=== PATIENT | female | born 1940 | race Hispanic/Latino ===

== ENCOUNTER 2019-04-05 15:43 | Emergency (ER) | payer OTHER ==
--- OUTSIDE RECORDS SUMMARY | 2019-04-05 15:46 | XMS REPORT ---
:1940 [facility] Organization [facility] Address [address] [place] [address] Care Team Providers Name Role Phone Unavailable Unavailable Unavailable Problems This patient has no known problems. Allergies, Adverse Reactions, Alerts This patient has no known allergies or adverse reactions. Medications This patient has no known medications.
--- OUTSIDE RECORDS SUMMARY | 2019-04-05 15:46 | XMS REPORT ---
:1940 Author Organization [employer] Care Team Providers Name Role Phone Larios, Na Provider Role Unavailable Allergies No Known Allergies Problems Problem Type Condition Code Onset Dates Condition Status Problem Age-related osteoporosis without M81.0 Active current pathological fracture Problem History of bilateral mastectomy Z98.89 Active Problem History of breast cancer Z85.3 Active Problem Controlled type 2 diabetes mellitus E11.9 Active without complication, without long-term current use of insulin Problem Osteoarthritis of lumbar spine, M47.816 Active unspecified spinal osteoarthritis complication status Problem Diabetes E11.9 Active Problem Obesity E66.9 Active Problem Hyperlipidemia E78.5 Active Problem Unsteady gait R26.81 Active Problem Tinea corporis B35.4 Active Problem Hypothyroidism E03.9 Active Problem GERD (gastroesophageal reflux K21.9 Active disease) Medications Medication Code Code Instructions Start End Date Status Dosage System Date Metformin HCl [facility][NOTE 3] 38200571643 850MG Orally Active 1 tablet three times a with a day meal Results No Known Results Summary Purpose [employer] System Submission
--- OUTSIDE RECORDS SUMMARY | 2019-04-05 15:46 | XMS REPORT ---
:1940 Author Organization [employer] Care Team Providers Name Role Phone Larios, Na Provider Role Unavailable Allergies, Adverse Reactions, Alerts Substance Reaction Event Type statin palpitations Drug Allergy codeine Info Not Available Drug Allergy Problems Problem Type Condition Code Onset Dates Condition Status Problem Age-related osteoporosis without M81.0 Active current pathological fracture Problem History of bilateral mastectomy Z98.89 Active Problem History of breast cancer Z85.3 Active Problem Diabetes E11.9 Active Problem Obesity E66.9 Active Problem Hyperlipidemia E78.5 Active Problem Unsteady gait R26.81 Active Problem Tinea corporis B35.4 Active Problem Hypothyroidism E03.9 Active Problem GERD (gastroesophageal reflux K21.9 Active disease) Assessment Age-related osteoporosis without M81.0 Active current pathological fracture Assessment Kriss rash of groin B37.89 Active Assessment Hypothyroidism E03.9 Active Assessment Controlled type 2 diabetes mellitus E11.9 Active without complication, without long-term current use of insulin Assessment Osteoarthritis of lumbar spine, M47.816 Active unspecified spinal osteoarthritis complication status Problem Controlled type 2 diabetes mellitus E11.9 Active without complication, without long-term current use of insulin Assessment Hyperlipidemia E78.5 Active Problem Osteoarthritis of lumbar spine, M47.816 Active unspecified spinal osteoarthritis complication status Medications Medication Code Code Instructions Start End Status Dosage System Date Date Amoxicillin ND 90486096185 500 MG Orally Inactive 1 tablet every 8 hrs Levothyroxine ND 64126112542 50 MCG Orally Active 1 tablet on Sodium Once a day an empty stomach in the morning Glimepiride ND 80203701130 2 MG Orally Inactive 1 tablet with Once a day breakfast or the first main meal of the day Nystatin [facility] 56869255636 847471 UNIT/GM Active 1 application Externally to affected Twice a day area Alendronate ND 06261751030 70 MG Orally Active 1 tablet Sodium Aspirin [facility] 81498382673 325 MG Orally Inactive 1 tablet Once a day -81 [facility] 64633206834 81 MG Orally Active 1 tablet Once a day Metformin HCl ND 27005117020 850 MG Orally Active 1 tablet with Three times a meals day Results Name Result Date Reference Range Unit Abnormality Flag KAR- XR LUMBAR SPINE (AP/LATERAL) Summary Purpose eClinicalWorks Submission
--- OUTSIDE RECORDS SUMMARY | 2019-04-05 15:46 | XMS REPORT ---
:1940 Author Organization [employer] Care Team Providers Name Role Phone Larios, Na Provider Role Unavailable Allergies, Adverse Reactions, Alerts Substance Reaction Event Type statin palpitations Drug Allergy codeine Info Not Available Drug Allergy Problems Problem Type Condition Code Onset Dates Condition Status Problem Unsteady gait R26.81 Active Problem Hypothyroidism E03.9 Active Problem GERD (gastroesophageal reflux K21.9 Active disease) Problem Tinea corporis B35.4 Active Problem History of bilateral mastectomy Z98.89 Active Problem Poison lewis dermatitis L23.7 Active Problem Diabetes E11.9 Active Problem Obesity E66.9 Active Problem History of breast cancer Z85.3 Active Problem Hyperlipidemia E78.5 Active Assessment Hyperlipidemia E78.5 Active Assessment Hypothyroidism E03.9 Active Assessment Skin tags, multiple acquired L91.8 Active Problem Controlled type 2 diabetes mellitus E11.9 Active without complication, without long-term current use of insulin Assessment Poison lewis dermatitis L23.7 Active Problem Osteoarthritis of lumbar spine, M47.816 Active unspecified spinal osteoarthritis complication status Assessment Controlled type 2 diabetes mellitus E11.9 Active without complication, without long-term current use of insulin Problem Age-related osteoporosis without M81.0 Active current pathological fracture Medications Medication Code Code Instructions Start End Status Dosage System Date Date Levothyroxine [facility] 10250201311 50 MCG Orally Active 1 tablet on Sodium Once a day an empty stomach in the morning Aspirin [facility] 91746541452 325 MG Orally Inactive 1 tablet Once a day Metformin HCl ND 61953730777 850MG Active TAKE ONE TABLET BY MOUTH THREE TIMES DAILY Omeprazole ND 69838555113 20MG Active TAKE ONE CAPSULE BY MOUTH ONCE DAILY Metformin HCl ND 93231298589 850 MG Orally Active 1 tablet with Three times a meals day Glimepiride ND 23483787636 2 MG Orally Inactive 1 tablet with Once a day breakfast or the first main meal of the day Nystatin ND 57584225508 796722 UNIT/GM Active 1 application Externally to affected Twice a day area Levothyroxine ND 84751333781 75MCG Active TAKE ONE Sodium TABLET BY MOUTH ONCE DAILY Alendronate [facility] 41322639250 70 MG Orally Active 1 tablet Sodium Aspir-81 [facility] 72838240358 81 MG Orally Active 1 tablet Once a day Results No Known Results Summary Purpose eClinicalWorks Submission
[2019-04-05] MEDS ORDERED: TETRACAINE HCL 0.5% 4ML OPTH ONE (16:17)
[2019-04-05] MEDS ORDERED: FLUORESCEIN SODIUM 1 MG/WRAP ONE ×2 (16:17→16:18)
--- NOTE | 2019-04-05 16:45 | ER ---
Nurse's Notes [facility] Name: Nadira Costello Age: 79 yrs Sex: Female : 1940 Arrival Date: 04/05/2019 Time: 15:44 Bed 24 Private MD: out of town, doctor Diagnosis: Foreign body sensation left eye Presentation: 04/05 15:48 Presenting complaint: Patient states: "I have an eyelash in my left eye and I can't get aa5 it out and it's irritating my eye". Transition of care: patient was not received from another setting of care. Onset of symptoms was April 05, 2019. Risk Assessment: Do you want to hurt yourself or someone else? Patient reports no desire to harm self or others. Initial Sepsis Screen: Does the patient meet any 2 criteria? No. Patient's initial sepsis screen is negative. Does the patient have a suspected source of infection? No. Patient's initial sepsis screen is negative. Care prior to arrival: None. 15:48 Method Of Arrival: Ambulatory aa5 15:48 Acuity: FLORENTINO 4 aa5 Historical: - Allergies: 15:49 Lisinopril; aa5 15:49 Nitrofurantoin; aa5 15:49 tramadol; aa5 15:49 Vicodin; aa5 - PMHx: 15:49 Arthritis; breast cancer; Diabetes - NIDDM; Hypothyroidism; aa5 - PSHx: 15:49 Mastectomy, Left; Appendectomy; Hysterectomy; aa5 - Immunization history:: Adult Immunizations up to date. - Coronavirus screen:: The patient has NOT traveled to [place], [place], or [place] in the past 14 days. - Social history:: Smoking status: Patient denies any tobacco usage or history of. - Ebola Screening: : No symptoms or risks identified at this time. Screenin:50 Abuse screen: Denies threats or abuse. Denies injuries from another. Nutritional ls4 screening: No deficits noted. Tuberculosis screening: No symptoms or risk factors identified. Fall Risk None identified. Assessment: 15:50 General: Appears in no apparent distress. uncomfortable, Behavior is calm, cooperative. ls4 Pain: Complains of pain in left eye Quality of pain is described as tender. Neuro: No deficits noted. Cardiovascular: No deficits noted. Respiratory: No deficits noted. GI: No deficits noted. : No deficits noted. EENT: Reports FEELS LIKE SOMETHING IS IN HER EYE. PT STATES THAT SHE CAN SEE BUT IT IS IRRITATED. . Derm: No deficits noted. Musculoskeletal: No deficits noted. 16:50 Reassessment: Patient appears in no apparent distress at this time. Patient and/or ls4 family updated on plan of care and expected duration. Pain level reassessed. Patient is alert, oriented x 3, equal unlabored respirations, skin warm/dry/pink. Vital Signs: 15:50 BP 167 / 79; Pulse 67; Resp 16 S; Temp 97.4(TE); Pulse Ox 99% on R/A; Weight 68.04 kg aa5 (R); Height 5 ft. 1 in. (154.94 cm) (R); 16:55 BP 146 / 78; Pulse 64; Resp 14; Temp 97.5(O); Pulse Ox 99% on R/A; Pain 0/10; ls4 15:50 Body Mass Index 28.34 (68.04 kg, 154.94 cm) aa5 ED Course: 15:44 Patient arrived in ED. ag5 15:44 out of town, doctor is Private Physician. ag5 15:49 Triage completed. aa5 15:49 Arm band placed on. aa5 15:50 Patient has correct armband on for positive identification. Bed in low position. Call ls4 light in reach. Side rails up X2. 15:55 [facility] cp 15:55 Sumeet Daugherty MD is Attending Physician. cp 16:02 Christy Leblanc, LULA is Primary Nurse. ls4 16:42 Daljit Ambrocio MD is Referral Physician. cp 16:45 Assist provider with eye exam of left eye. using fluorescein stain, Performed by Dennis 4 Brittany BAUTISTA Patient tolerated well. 16:45 Patient did not have IV access during this emergency room visit. ls4 Administered Medications: 16:20 Drug: Tetracaine Drops 0.5 % 1 drops Route: Ophthalmic; Site: left eye; ls4 Outcome: 16:44 Discharge ordered by . cp 17:02 Discharged to home ambulatory. ls4 17:02 Condition: good 17:02 Discharge instructions given to patient, Instructed on discharge instructions, follow up and referral plans. medication usage, Demonstrated understanding of instructions, follow-up care, medications. 17:03 Patient left the ED. ls4 Signatures: Lisa Gonzalez, LULA RN aa5 Dennis Soto PA PA cp Stewart, Lisa, RN RN ls4 Beatriz Johnson 5
--- NOTE | 2019-04-05 16:45 | EDPHYS ---
Physician Documentation [facility] Name: Nadira Costello Age: 79 yrs Sex: Female : 1940 Arrival Date: 04/05/2019 Time: 15:44 Bed 24 Private MD: out of town, doctor ED Physician Sumeet Daugherty HPI: 04/05 16:05 This 79 yrs old Female presents to ER via Ambulatory with complaints of cp Foreign Body In Eye. 16:05 The patient is experiencing foreign body sensation, to the left eye, caused by possible cp eyelash. Onset: The symptoms/episode began/occurred today. Duration: the symptoms are continuous. Associated signs and symptoms: Pertinent negatives: ear ache, fever, headache, vision changes. Patient wears glasses. Severity of symptoms: in the emergency department the symptoms are unchanged despite home interventions. Historical: - Allergies: 15:49 Lisinopril; aa5 15:49 Nitrofurantoin; aa5 15:49 tramadol; aa5 15:49 Vicodin; aa5 - PMHx: 15:49 Arthritis; breast cancer; Diabetes - NIDDM; Hypothyroidism; aa5 - PSHx: 15:49 Mastectomy, Left; Appendectomy; Hysterectomy; aa5 - Immunization history:: Adult Immunizations up to date. - Coronavirus screen:: The patient has NOT traveled to [place], [place], or [place] in the past 14 days. - Social history:: Smoking status: Patient denies any tobacco usage or history of. - Ebola Screening: : No symptoms or risks identified at this time. ROS: 16:10 Constitutional: Negative for body aches, chills, fever. cp 16:10 Eyes: Positive for foreign body sensation, of the underside of left upper eyelid, Negative for discharge, pain, redness, visual disturbance. 16:10 ENT: Negative for drainage from ear(s), ear pain, sore throat, difficulty swallowing, difficulty handling secretions. 16:10 Respiratory: Negative for cough, shortness of breath, wheezing. 16:10 Abdomen/GI: Negative for abdominal pain, nausea, vomiting, and diarrhea. 16:10 Skin: Negative for cellulitis, rash. 16:10 Neuro: Negative for altered mental status, headache, weakness. 16:10 All other systems are negative. cp Exam: 16:20 Constitutional: The patient appears in no acute distress, alert, awake, comfortable, cp non-toxic, well developed, well nourished. 16:20 Head/Face: Normocephalic, atraumatic. cp 16:20 Eyes: Periorbital structures: appear normal, Pupils: equal, round, and reactive to light and accomodation, Extraocular movements: intact throughout, Conjunctiva: normal, no exudate, no injection, Corneas: abrasion, is not appreciated, on the left, foreign body, is not appreciated, on the left, a fluorescein strip employed to appreciate the findings, Sclera: no appreciated abnormality, Anterior chamber: normal, in left eye, Lids and lashes: appear normal, on the left, Examination of the other eye reveals no obvious gross abnormality, right eye. 16:20 ENT: External ear(s): are unremarkable, Nose: is normal, Mouth: Lips: moist, Oral mucosa: pink and intact, moist, Posterior pharynx: is normal, airway is patent. 16:20 Neck: Lymph nodes: no appreciated lymphadenopathy. 16:20 Chest/axilla: Inspection: normal. 16:20 Cardiovascular: Rate: normal. 16:20 Respiratory: the patient does not display signs of respiratory distress, Respirations: normal. 16:20 Skin: cellulitis, is not appreciated, no rash present. Vital Signs: 15:50 BP 167 / 79; Pulse 67; Resp 16 S; Temp 97.4(TE); Pulse Ox 99% on R/A; Weight 68.04 kg aa5 (R); Height 5 ft. 1 in. (154.94 cm) (R); 16:55 BP 146 / 78; Pulse 64; Resp 14; Temp 97.5(O); Pulse Ox 99% on R/A; Pain 0/10; ls4 15:50 Body Mass Index 28.34 (68.04 kg, 154.94 cm) aa5 MDM: 16:08 Patient medically screened. cp 16:20 Differential diagnosis: Corneal abrasion of left eye. Foreign body in left eye. Acute cp iritis of left eye. Acute glaucoma in left eye. Infectious conjunctivitis in left eye. 16:43 Data reviewed: vital signs, nurses notes. cp 16:43 Counseling: I had a detailed discussion with the patient and/or guardian regarding: the cp historical points, exam findings, and any diagnostic results supporting the discharge/admit diagnosis, the need for outpatient follow up, an opthalmologist, to return to the emergency department if symptoms worsen or persist or if there are any questions or concerns that arise at home. Response to treatment: the patient's symptoms have mildly improved after treatment, and as a result, I will discharge patient. 04/05 15:56 Order name: Eye Tray; Complete Time: 16:58 cp 04/05 15:56 Order name: Fluoresene Opth strip; Complete Time: 16:19 cp Administered Medications: 16:20 Drug: Tetracaine Drops 0.5 % 1 drops Route: Ophthalmic; Site: left eye; ls4 Disposition: 17:30 Chart complete. cp 18:35 Co-signature as Attending Physician, Sumeet Daugherty MD I agree with the assessment and kdr plan of care. Disposition: 04/05/19 16:44 Discharged to Home. Impression: Foreign body sensation left eye. - Condition is Stable. - Prescriptions for Refresh Tears - place 1 drop by OPHTHALMIC route every 2-4 hours for 5 days; 1 bottle. - Medication Reconciliation Form, Thank You Letter, Antibiotic Education, Prescription Opioid Use form. - Follow up: Daljit Ambrocio MD; When: 2 - 3 days; Reason: symptoms continue. - Problem is new. - Symptoms have improved. Signatures: Sumeet Daugherty MD MD kdr Lisa Gonzalez, RN RN aa5 Dennis Soto PA PA cp Christy Leblanc, RN RN ls4 Corrections: (The following items were deleted from the chart) 16:57 15:55 Visual Acuity ordered. cp ls4 17:03 16:44 04/05/2019 16:44 Discharged to Home. Impression: Foreign body sensation left eye. ls4 Condition is Stable. Forms are Medication Reconciliation Form, Thank You Letter, Antibiotic Education, Prescription Opioid Use. Follow up: Daljit Ambrocio; When: 2 - 3 days; Reason: symptoms continue. Problem is new. Symptoms have improved. cp
[2019-04-05 17:07] VITALS: O2SAT 99
[2019-04-05 17:08] VITALS: BP 146/78; TEMP 97.5
== END 2019-04-05 17:03 | disposition home or self-care (01) ==
LOC: ER 15:43
DX: T15.92XA Foreign body on external eye, part unspecified, left eye, initial encounter (principal); X58.XXXA Exposure to other specified factors, initial encounter; Y93.9 Activity, unspecified; Y92.9 Unspecified place or not applicable; Z88.6 Allergy status to analgesic agent; Z88.8 Allergy status to other drugs, medicaments and biological substances
CPT/HCPCS: 99283

== ENCOUNTER 2019-08-06 05:19 | Emergency (ER) | payer OTHER ==
--- OUTSIDE RECORDS SUMMARY | 2019-08-06 05:21 | XMS REPORT ---
:1940 Author Organization [facility] t Address [address] [place] [address] Care Team Providers Name Role Phone Unavailable Unavailable Unavailable Problems Condition Condition Condition Status Onset Resolution Last Treating Co mments Source Name Details Category Date Date Treatment Clinician Date Diabetes Diabetes Problem Active 2019-0 Lacy ge mellitus Mellitus 07-17 Family 00:00: Practic 00 e Diabetic Diabetic Problem Active 2019-0 Lacy ge neuropathy Neuropathy 07-17 Fa avery 00:00: Practic 00 e Hyperlipid Hyperlipid Problem Active 2020-0 V illage emia emia 07-17 Family 00:00: Practic 00 e Essential Essential Problem Active 2019-0 Vince tricia hypertensi Hypertensi 07-17 Fa avery on on 00:00: Practic 00 e At risk At Risk Problem Active 2019-0 [facility] for falls for Falls 07-17 Fami ly 00:00: Practic 00 e Age-relate Age-relate Problem Active [facility] - osteoporos osteoporos Me moria is without is without l current current Outpati pathologic pathologic en t al al Clinics fracture fracture History of History of Problem Active [facility] bilateral bilateral [facility] - mastectomy mastectomy Me moria l Outpati ent Clinics History of History of Problem Active [facility] breast breast [facility] - cancer cancer [facility] l Outpati ent Clinics Controlled Controlled Diagnosis Active [facility] type 2 type 2 [facility] - diabetes diabetes Memori a mellitus mellitus l without without Outpati complicati complicati en t on, on, Clinics without without long-term long-term current current use of use of insulin insulin Obesity Obesity Problem Active [facility] Clin[facility] Hyperlipid Hyperlipid Diagnosis Active [facility] emia emia [facility] Clin[facility] Unsteady Unsteady Problem Active [facility] gait gait [facility]ics Tinea Tinea Problem Active [facility] corporis corporis [facility] - [facility] ent Clinics Hypothyroi Hypothyroi Diagnosis Active [facility] dism dism kes - Memoria [facility] ent Clinics GERD GERD Problem Active [facility] (gastroeso (gastroeso Louise kes - phageal phageal Memoria reflux reflux l disease) disease) Outpat i ent Clinics Osteoarthr Osteoarthr Problem Active [facility] itis of itis of [facility] - lumbar lumbar Memoria spine, spine, l unspecifie unspecifie Ou tpati d spinal d spinal ent osteoarthr osteoarthr Cl inics itis itis complicati complicati on status on status Poison lewis Poison lewis Diagnosis Active [facility] dermatitis dermatitis Louise kes - [facility] ent Clinics Skin tags, Skin tags, Diagnosis Active [facility] multiple multiple [facility] - acquired acquired Memori a l [facility] ent Clinics Allergies, Adverse Reactions, Alerts Allergy Allergy Status Severity Reaction(s) Onset Inactive Treating Comm ents Source Name Type Date Date Clinician Codeine Allergy Active Moderate Palpitations [place] to to severe Family substanc Practic e e statin Adverse Active palpitations [facility] Reaction [facility] ent Clinics codeine Adverse Active Info Not [facility] Reaction Available [facility] Clinics Social History Smoking Status Start Date Stop Date Source Former Smoker [facility] ractice Medications Ordered Filled Start Stop Current Ordering Indication Dosage Frequency Signature Comments Components Source Medication Medication Date Date Medication? Clinician (SIG) Name Name Metformin Metformin Yes Na Lariso TAKE ONE [facility] HCl HCl TABLET BY [facility] - MOUTH Memoria THREE l TIMES [facility] DAILY ent Clinics Levothyroxi Levothyroxi Yes Na Larios [address] [facility] ne Sodium ne Sodium on an Luke s - empty Memoria stomach in l the [facility] morning ent Clinics Aspirin Aspirin Yes Na Larios [address] [facility] Clinics biotin biotin No 1capsul Q1D biotin [place] e 2,500 mcg 2,500 mcg e(s) 2,500 mcg Family capsule capsule capsule Practi c Take 1 Take 1 Take 1 e capsule capsule capsule every day every day every day by oral by oral by oral route. route. route. Omeprazole Omeprazole Yes Na Larios TAKE ONE [facility] CAPSULE BY [facility] - MOUTH ONCE Memoria DAILY [facility] ent Clinics cetirizine cetirizine No 1 Q1D cetirizine [place] 10 mg 10 mg 10 mg Family tablet Take tablet Take tablet Practic 1 tablet 1 tablet Take 1 e every day every day tablet by oral by oral every day route. route. by oral route. Metformin Metformin Yes Na Larios [address] [address] HCl HCl with meals [facility] gabapentin gabapentin No 1capsul TID gabapentin [facility] 100 mg 100 mg e(s) 100 mg Family capsule capsule capsule Practi c Take 1 Take 1 Take 1 e capsule 3 capsule 3 capsule 3 times a day times a day times a by oral by oral day by route. route. oral route. Glimepiride Glimepiride Yes Na Larios [address] [facility] first main [facility] meal of ent the day Clinics glyburide 5 glyburide 5 No 1 Q1D glyburide [place] mg tablet mg tablet 5 mg Famil y Take 1 Take 1 tablet Practic tablet tablet Take 1 e every day every day tablet by oral by oral every day route. route. by oral route. Nystatin Nystatin Yes Na Larios [address] [facility] [facility] - n to Memoria affected [facility] ent [facility] magnesium magnesium No 1 Q1D magnesium [facility] 250 mg (as 250 mg (as 250 mg (as Family magnesium magnesium magnesium Practic oxide) oxide) oxide) e tablet Take tablet Take tablet 1 tablet 1 tablet Take 1 every day every day tablet by oral by oral every day route. route. by oral route. Levothyroxi Levothyroxi Yes Na Larios TAKE ONE [facility] ne Sodium ne Sodium TABLET BY [facility] - MOUTH ONCE Memoria DAILY [facility] metformin metformin No 1 BID metformin [facility] 1,000 mg 1,000 mg 1,000 mg Fam ervin tablet Take tablet Take tablet Practic 1 tablet 1 tablet Take 1 e twice a day twice a day tablet by oral by oral twice a route. route. day by oral route. Alendronate Alendronate Yes Na Larios [address] S[facility] S[facility] omeprazole omeprazole No 1 Q1D omeprazole [place] 20 mg 20 mg 20 mg Family tablet,alexander tablet,alexander tablet,del Practic yed release yed release ayed e Take 1 Take 1 release tablet tablet Take 1 every day every day tablet by oral by oral every day route. route. by oral route. Aspir-81 Aspir-81 Yes Na Larios [address] kes - Memoria l Outpati ent [facility] simvastatin simvastatin No 1 Q1D hansa [facility] 20 mg 20 mg n 20 mg Family tablet Take tablet Take tablet Practic 1 tablet 1 tablet Take 1 e every day every day tablet by oral by oral every day route. route. by oral route. Tylenol 325 Tylenol 325 No 2 Q6H Tylenol [place] mg tablet mg tablet 325 mg Fam ervin Take 2 Take 2 tablet Practic tablets tablets Take 2 e every 6 every 6 tablets hours by hours by every 6 oral route. oral route. hours by oral route. Procedures Procedure Date / Time Performed Performing Clinician [facility] Reduction of Fracture of [facility] Upper Arm with Internal Practice Fixation Appendectomy [facility] Plan of Care Planned Activity Planned Date Details Comments Source Future Appointment 2019-10-18 00:00:00 Jud daniels [facility], [address]; [address] [address], [place] [address] Instructions [facility] Encounters Start End Encounter Admission Attending Care Care Encounter Source Date/Time Date/Time Type Type Clinicians Facility Department ID 2019-07-18 2019-07-18 Jud Benoit [facility] - [id number] [facility] 00:00:00 00:00:00 [facility] 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 2017-08-30 2017-08-30 [id number] [facility] [address] 14:30:00 14:30:00 [employer] [facility] ent [facility] 2017-08-28 2017-08-28 [facility] [id number] 16:25:00 16:25:00 [employer] [facility] ent Clinics 2017-05-29 2017-05-29 [facility] [id number] 09:15:00 09:15:00 [employer] [facility] ent Clinics Results This patient has no known results.
--- OUTSIDE RECORDS SUMMARY | 2019-08-06 05:22 | XMS REPORT | Encounter Summary ---
:1940 Author Care Team Providers Name Role Phone Edy Coon MD Primary Care Provider [phone] Reason for Visit annual depression screening; home visit (initial); Telemedicine Visit Instructions 1. Vulnerable adult 2. Depression screening learning about depression learning about depression 3. Diabetes mellitus chronic care management re ferral glyburide 5 mg tablet metformin 1,000 mg tablet 4. Diabetic neuropathy gabapentin 100 mg capsule 5. Essential hypertension 6. Hyperlipidemia high cholesterol: care ins tructions omeprazole 20 mg tablet,de layed release simvastatin 20 mg tablet 7. At risk for falls 8. Advance directive discussed w ith patient advance care planning: car e instructions 9. Depression screening positive learning about depression learning about mood disord ers Discussion Note: None recorded. Plan of Care Patient Instructions Today, I reviewed your medications. If you need help getting your medications filled, our [facility] can sync medication refills, deliver within a 10 mile radius, or [employer] overnight at no additional cost. Please watch for warning symptoms that m ay occur: fever redness/oozing at surgical site shortness of breath uncontrolled pain unexpected weight gain/loss high or low blood pressure chest pain confusion any other health concerns Call us at if you experie nce any of these symptoms. Evening and Monday clinic hours are av ailable if you have problems. If you have problems after hours, you ca n reach the [facility] physician electronic sales and service technician at . It was good to speak with you virtually today for your Medicare Annual Wellness Visit. You have been provided some information on healthy nutrition, including a diet rich in fruits and vegetables, minimizing simple carbohydrates, salt, and saturated fats. I want to encourage regular cardi ovascular exercise such as walking at le ast 30 minutes daily, 5 times per week. Please remember to schedule any preventi ve health measures that we talked about today. You have also been provided education on fall prevention and community- based lifestyle interventions to help reduce health risks and promote healthy living in your Annual Wellness folder. Screening Recommendations 1. Vaccines Pneumonia: Recommended today Influenza: This Fall 2. Mammography Screening: No further scr eening necessary at this time 3. Colorectal Cancer Screening: IFOB ( year) Next Screening 4. Annual Depression Screening 5. Annual Alcohol Screening 6. Annual Fall Risk Screening 7. Annual Health Risk Assessment Reminders Provider Appointments Telemedicine on or around [address] 10/18/2019 [facility] None recorded. Referral Chronic Care 07/18/2019 [facility] age Medical Management Referral - Care Manag ement Procedures None recorded. Surgeries None recorded. Imaging None recorded. Medications Name Start Date biotin 2,500 mcg capsule Take 1 capsule every day by oral route. cetirizine 10 mg tablet Take 1 tablet every day by oral route. gabapentin 100 mg capsule Take 1 capsule 3 times a day by oral route. glyburide 5 mg tablet Take 1 tablet every day by oral route. magnesium 250 mg (as magnesium oxide) tablet Take 1 tablet every day by oral route. metformin 1,000 mg tablet Take 1 tablet twice a day by oral route. omeprazole 20 mg tablet,delayed release Take 1 tablet every day by oral route. simvastatin 20 mg tablet Take 1 tablet every day by oral route. Tylenol 325 mg tablet Take 2 tablets every 6 hours by oral route. Medications Administered None recorded. Vitals None recorded. Results Lab Results None recorded. Allergies Code Code System Name Reaction Severity Status Onset 2669 RxNorm Codeine Palpitations Moderate to Active Severe Problems Name Status Onset Date Source Diabetes Mellitus Active 07/18/2019 Diabetic Neuropathy Active 07/18/2019 Hyperlipidemia Active 07/18/2019 Essential Hypertension Active 07/18/2019 At Risk for Falls Active 07/18/2019 Procedures Date Name Performed by Reduction of Fracture of Upper Arm with Information not available Internal Fixation Appendectomy Information not avai lable Vaccine List None recorded. Social History Tobacco Smoking Status Former Smoker (1/2 PPD) Past Encounters 07/18/2019 Vulnerable Adult; Depression Screening; Diabetes Mellitus; Diabetic Neuropathy; Essential Hypertension; Hyperlipidemia; At Risk for Falls; Advance Directive Discussed with Patient; Depression Screening Positive Jud Boogie NP: [address] [facility] , [address], [place] [address], Ph. History of Present Illness Mini Cog Reported By: Patient Mini Cog (with scoring) Reported By: Patient Functional Ability: Personal/Social/ Draw a cloc k and write in the numbers in the correct place, and set the t jesus to 10 minutes after 11 o'clock was completed correctly? Yes (2 points), 3 word recall: Your nurse or doctor will ask you to remember 3 words. In 5 minutes, they will ask you to repeat them. Patient recalled 1 word (1 point). Cognitive Impairment : MiniCog = 3: mild cognitive impairment. Consider SLUMS o r MMSE Notes: MMSE - 18 mild cognitive imp airment Opioid Use Assessment Reported By: Patient Note: <div>[facility] ( DOMINIQUE: _Jud ButtLouis ) reviewed the Virtual Care consent form verbally with patient. Patient {{did|did not*}} have questions. Any and all patient questions were addressed. Patient consented to health care services provided via [facility]. Patient was directed to the [facility] website to review the form in greater detail. Patient was informed that a physical copy of the consent would be mailed to his/her home. Patient confirmed that, uponreceipt of the consent, that he/she will sign and return the form in the pre-addressed and stamped en velope.</div><div>
</div>I confirm that I received verbal consent from the patient for the virtual visit.
This telemedicine encounter was performed using live {{video and audio|audio only*}}.
<b>(for audio only)</b> Total time spent with patient: {{55#| }} minutes.
Patient was evaluated today for the following chronic and acute conditions (see HPI below), as well as other concerns:
<p>1. DM with neuropathy
&lt ;/p><p>
</p><p>2. Hyperlipidemia

Patient utilizes the following resources:
</p><li>Home health care: {{Yes|No, does not need assistance with skilled needs*|No, needs assistance with skilled needs}} </li>
<li>Material Requirements Worker: {{Yes|No, does not need assistance with ADLs*|No, needs assistance with ADLs}} < /li>
<li>Durable Medical Equipment: {{Yes|No*|No, needs order for _}} </li>
How many times has the patient been admitted to the hospital in the last 12 months? {{0*|1|2+}}

How many times has the patient been seen in the emergency room in the last 12 months? {{0*|1|2+}}

Has patient been evaluated for Chronic Care Management? {{Yes – currently enrolled|Yes - has graduated from care management|Yes – declined program|No – referred to program today*}}

Does patient have needs or concerns in any of the following areas (Housing, Food, Transportation, Utilities, Personal Safety)? {{Yes – Social Work referral ordered|No*}}

Patient lives: {{In his/her own home or apartment*|In home or apartment of relative|Senior Apartment|Assisted Living Facility or [facility]|Long Term Facility}}

Does patient have difficulty taking his / her medications as directed? {{Yes – Pharmacy Consult ordered|No*}}

I confirm that I received verbal consent from the patient for the virtual visit.
This telemedicine encounter was p erformed using live {{video and audio|audio only}}.
<b>(for audio only)</b> Total time spent with patient: {{ }} minutes. Review of Systems Comprehensive General Adult ROS, Geriatric Annual Well Visit Reported By: Patient Constitutional: Constitutional: no fever, no night sweats, no significant weight gain, no significant weight loss, no exercise intolerance Eyes: Eyes: no dry eyes, no vision change, no irritation ENMT: Ears: no difficulty hearing, no ear pain. Nose: no frequent nosebleeds, no nose problems , no sinus problems. Mouth/Throat: no sore throat , no bleeding gums, no snoring, no dry mouth, no mouth ulcer s, no oral abnormalities, no teeth problems Cardiovascular: Cardiovascular: no chest unruly n, no arm pain on exertion, no shortness of breath when wal robert, no shortness of breath when lying down, no palpitations, no known heart murmur, no lightheadedness Respiratory: Respiratory: no cough, no wh eezing, no shortness of breath, no coughing up blood, no sle ep apnea Gastrointestinal: Gastrointestinal: no abdomin al pain, no nausea, no vomiting, no constipation, normal appe tite, no diarrhea, not vomiting blood, no dyspepsia, no GERD Genitourinary: Genitourinary: no incontinen ce, no difficulty urinating, no hematuria, no increased freq uency Musculoskeletal: Musculoskeletal: no muscle w eakness, no arthralgias/joint pain, no back pain, no swell ing in the extremities, muscle aches; Right upper arm ache 4/10 Integumentary: Skin: no abnormal mole, no j aundice, no rashes, no laceration Neurologic: Neurologic: no loss of consc iousness, no weakness, no numbness, no seizures, no di zziness, no migraines, no headaches, no tremor Psychiatric: Psych: no depression, no sle ep disturbances, feeling safe in a relationship, no alcohol a buse, no anxiety, no hallucinations, no suicidal thoughts Endocrine: Endocrine: no fatigue Hematologic/Lymphatic: Hematologic/Lymphatic no swo llen glands, no bruising, no excessive bleeding Allergic/Immunologic: Allergy/Immunologic: no runn y nose, no sinus pressure, no itching, no hives, no freque nt sneezing Geriatric independence: Falling: no fall in the past year, no fall since last visit. Use of assistive devices: no ne. Activities of Daily Living: able to bathe independently, able to dress independently, able to feed self independen tly, able to get out of chair independently, able to groom independently, able to toilet independently. Instrumental activities of daily living: able to meal prep independently, able to grocery shop independently, able to manag e money independently, able to manage medications independe ntly. Functional capacity able to climb a flight of stairs Physical Exam General Adult Exam (Female), Telemedicine/Virtual Visit Reported By: Patient"
[2019-08-06] MEDS ORDERED: FAMOTIDINE 20 MG TAB ONE (05:42)
[2019-08-06] MEDS ORDERED: predniSONE 20 MG TAB ONE (05:42)
[2019-08-06] MEDS ORDERED: DIPHENHYDRAMINE 25 MG TAB/CAP ONE (05:42)
[2019-08-06 05:51] VITALS: BP 175/78; TEMP 97.3; O2SAT 97
--- NOTE | 2019-08-12 12:59 | EDPHYS ---
Physician Documentation [facility] Name: Nadira Costello Age: 79 yrs Sex: Female : 1940 Arrival Date: 08/06/2019 Time: 05:21 Bed 5 Private MD: ED Physician Analy Crawford HPI: 08/05 05:40 This 79 yrs old Female presents to ER via Ambulatory with complaints of ma2 Itching. 05:40 Onset: The symptoms/episode began/occurred gradually, 2 hour(s) ago. Severity of ma2 symptoms: At their worst the symptoms were very mild in the emergency department the symptoms are unchanged. The patient has not experienced similar symptoms in the past. Historical: - Allergies: 05:32 Lisinopril; ea 05:32 Nitrofurantoin; ea 05:32 tramadol; ea 05:32 Vicodin; ea - PMHx: 05:32 Hypothyroidism; Diabetes - NIDDM; breast cancer; Arthritis; ea - PSHx: 05:32 Mastectomy, Left; Appendectomy; Hysterectomy; ea - Immunization history:: Adult Immunizations up to date. - Social history:: Patient/guardian denies using alcohol, street drugs, The patient lives Smoking status: Patient denies any tobacco usage or history of. - Family history:: not pertinent. ROS: 05:40 Constitutional: Negative for fever, chills, and weight loss. ma2 05:40 All other systems are negative. Exam: 05:40 Constitutional: This is a well developed, well nourished patient who is awake, alert, ma2 and in no acute distress. Head/Face: Normocephalic, atraumatic. ENT: Nares patent. No nasal discharge, no septal abnormalities noted. Tympanic membranes are normal and external auditory canals are clear. Oropharynx with no redness, swelling, or masses, exudates, or evidence of obstruction, uvula midline. Mucous membranes moist. Neck: Trachea midline, no thyromegaly or masses palpated, and no cervical lymphadenopathy. Supple, full range of motion without nuchal rigidity, or vertebral point tenderness. No Meningismus. Chest/axilla: Normal chest wall appearance and motion. Nontender with no deformity. No lesions are appreciated. Cardiovascular: Regular rate and rhythm with a normal S1 and S2. No gallops, murmurs, or rubs. Normal PMI, no JVD. No pulse deficits. Respiratory: Lungs have equal breath sounds bilaterally, clear to auscultation and percussion. No rales, rhonchi or wheezes noted. No increased work of breathing, no retractions or nasal flaring. Abdomen/GI: Soft, non-tender, with normal bowel sounds. No distension or tympany. No guarding or rebound. No evidence of tenderness throughout. Back: No spinal tenderness. No costovertebral tenderness. Full range of motion. Skin: Warm, dry with normal turgor. Normal color with no rashes, no lesions, and no evidence of cellulitis. MS/ Extremity: Pulses equal, no cyanosis. Neurovascular intact. Full, normal range of motion. Neuro: Awake and alert, GCS 15, oriented to person, place, time, and situation. Cranial nerves II-XII grossly intact. Motor strength 5/5 in all extremities. Sensory grossly intact. Cerebellar exam normal. Normal gait. Vital Signs: 05:30 BP 175 / 78; Pulse 67; Resp 19; Temp 97.3; Pulse Ox 97% on R/A; ea MDM: 05:32 Patient medically screened. ma2 05:40 Differential Diagnosis allergic reaction, no anaphyklaxis, no hypotension or lung ma2 involvment . Data reviewed: vital signs, nurses notes. Counseling: I had a detailed discussion with the patient and/or guardian regarding: the historical points, exam findings, and any diagnostic results supporting the discharge/admit diagnosis, the presence of at least one elevated blood pressure reading (>120/80) during this emergency department visit, the need for outpatient follow up. Response to treatment: the patient's symptoms have resolved after treatment. Administered Medications: 05:36 Drug: predniSONE 60 mg Route: PO; ea 05:38 Follow up: Response: Medication administered at discharge. rv 05:36 Drug: Pepcid 20 mg Route: PO; ea 05:38 Follow up: Response: Medication administered at discharge. rv 05:37 Drug: Benadryl 50 mg Route: PO; ea 05:39 Follow up: Response: Medication administered at discharge. rv Disposition: 08/06/19 05:41 Discharged to Home. Impression: Rash and other nonspecific skin eruption. - Condition is Stable. - Discharge Instructions: Rash, Pigr-lv-Gylw. - Prescriptions for Benadryl 25 mg Oral Capsule - take 1 capsule by ORAL route every 6 hours As needed; 30 tablet. Medrol (Vasile) 4 mg Oral Tablets, Dose Pack - take 1 tablet by ORAL route as directed - follow package instructions; 1 packet. Pepcid 20 mg Oral Tablet - take 1 tablet by ORAL route once daily for 10 days; 10 tablet. - Medication Reconciliation Form, Thank You Letter, Antibiotic Education, Prescription Opioid Use form. - Follow up: Private Physician; When: Tomorrow; Reason: Recheck today's complaints, Continuance of care. Signatures: James Bustillos RN RN Daisha Berg RN Analy Bo ea, MD MD ma2 Ever Celis RN rv Corrections: (The following items were deleted from the chart) 05:44 05:41 08/06/2019 05:41 Discharged to Home. Impression: Rash and other nonspecific skin sg eruption. Condition is Stable. Forms are Medication Reconciliation Form, Thank You Letter, Antibiotic Education, Prescription Opioid Use. Follow up: Private Physician; When: Tomorrow; Reason: Recheck today's complaints, Continuance of care. ma2
--- NOTE | 2019-08-12 12:59 | ER ---
Nurse's Notes [facility] Name: Nadira Costello Age: 79 yrs Sex: Female : 1940 Arrival Date: 08/06/2019 Time: 05:21 Bed 5 Private MD: Diagnosis: Rash and other nonspecific skin eruption Presentation: 08/05 05:27 Ebola Screen: No symptoms or risks identified at this time. ea 05:28 Initial Sepsis Screen: Does the patient meet any 2 criteria? No. Patient's initial ea sepsis screen is negative. Does the patient have a suspected source of infection? No. Patient's initial sepsis screen is negative. 05:28 Anaphylaxis evaluation, the patient reports or I have noted the following symptoms ea which indicate a significant risk of anaphylaxis: no signs or symptoms of anaphylaxis were noted no signs or symptoms of anaphylaxis were noted. 05:28 Method Of Arrival: Ambulatory ea 05:28 Coronavirus screen: Proceed with normal triage. ea 05:29 Risk Assessment: Do you want to hurt yourself or someone else? Patient reports no ea desire to harm self or others. 05:30 Chief complaint: Patient states: Reports she started having itching and a rash about an ea hour ago. Onset: The symptoms/episode began/occurred 1 hour(s) ago. Onset of symptoms was August 06, 2019. 05:30 Acuity: FLORENTINO 3 ea Historical: - Allergies: 05:32 Lisinopril; ea 05:32 Nitrofurantoin; ea 05:32 tramadol; ea 05:32 Vicodin; ea - PMHx: 05:32 Hypothyroidism; Diabetes - NIDDM; breast cancer; Arthritis; ea - PSHx: 05:32 Mastectomy, Left; Appendectomy; Hysterectomy; ea - Immunization history:: Adult Immunizations up to date. - Social history:: Patient/guardian denies using alcohol, street drugs, The patient lives Smoking status: Patient denies any tobacco usage or history of. - Family history:: not pertinent. Screenin:27 Abuse screen: Denies threats or abuse. Nutritional screening: No deficits noted. ea Tuberculosis screening: No symptoms or risk factors identified. Fall Risk None identified. Assessment: 05:29 General: Appears in no apparent distress. Behavior is calm, cooperative, appropriate ea for age. Pain: Denies pain. Neuro: Level of Consciousness is awake, alert, obeys commands, Oriented to person, place, time, situation. Respiratory: Airway is patent Respiratory effort is even, unlabored, Respiratory pattern is regular, symmetrical. Derm: Rash noted that is urticaria. Vital Signs: 05:30 BP 175 / 78; Pulse 67; Resp 19; Temp 97.3; Pulse Ox 97% on R/A; ea ED Course: 05:21 Patient arrived in ED. ds1 05:22 Ever Celis, RN is Primary Nurse. rv 05:27 Patient has correct armband on for positive identification. Bed in low position. Call ea light in reach. 05:27 Arm band placed on right wrist. Patient placed in an exam room, on a stretcher, on ea pulse oximetry. 05:31 Triage completed. ea 05:32 Analy Crawford MD is Attending Physician. ma2 Administered Medications: 05:36 Drug: predniSONE 60 mg Route: PO; ea 05:38 Follow up: Response: Medication administered at discharge. rv 05:36 Drug: Pepcid 20 mg Route: PO; ea 05:38 Follow up: Response: Medication administered at discharge. rv 05:37 Drug: Benadryl 50 mg Route: PO; ea 05:39 Follow up: Response: Medication administered at discharge. rv Outcome: 05:41 Discharge ordered by . ma2 05:44 Patient left the ED. sg Signatures: James Bustillos, RN Alyx Barrera ds1 Daisha Moore RN RN ea Alzahri, Mohammad, MD MD ma2 Ever Celis, RN RN rv
== END 2019-08-06 05:44 | disposition home or self-care (01) ==
LOC: ER 05:19
DX: R21 Rash and other nonspecific skin eruption (principal); Z88.5 Allergy status to narcotic agent; Z88.8 Allergy status to other drugs, medicaments and biological substances; Z85.3 Personal history of malignant neoplasm of breast; Z90.12 Acquired absence of left breast and nipple
CPT/HCPCS: 99283; J7512

== ENCOUNTER 2020-10-09 17:54 | Observation (INO) | payer OTHER ==
--- OUTSIDE RECORDS SUMMARY | 2020-10-09 17:57 | XMS REPORT | Continuity of Care Document ---
:1940 Author Organization [facility] t Address 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 8-26 Family 00:00: Practic 00 e Hyperlipid Hyperlipid Problem Active 2020-0 [facility] emia emia 5-07 Family 00:00: Practic 00 e Essential Essential Problem Active 2020-0 Vince tricia hypertensi Hypertensi 5-07 Fa avery on on 00:00: Practic 00 e At risk At Risk Problem Active 2020-0 [place] [facility] [place] for [facility] 07-17 [facility] 00:00: Practic 00 e Diabetes Diabetes Problem Active 2020-0 Lacy ge mellitus Mellitus 5-07 Family 00:00: Practic 00 e Neuropathy Neuropathy Problem Active 2020-0 [facility] due to Due to 5-07 Family diabetes Diabetes 00:00: Practi c mellitus Mellitus 00 e Age-relate Age-relate Problem Active C [...] Memori a mellitus mellitus l without without [facility] complicati complicati en t on, on, Clinics without without long-term long-term current current use of use of insulin insulin Obesity Obesity Problem Active [facility] Clinics Hyperlipid Hyperlipid Diagnosis Active [facility] Clinics Unsteady Unsteady Problem Active [facility] Clinics Tinea Tinea Problem Active [facility] Hypothyroi Hypothyroi Diagnosis Active [facility] dism dism k[facility] - [facility] l [facility] ent Clinics GERD GERD Problem Active [facility] [...] St dermatitis dermatitis Louise kes - Memoria l [facility] ent Clinics Skin tags, Skin tags, Diagnosis Active [facility] multiple multiple [facility] - acquired acquired Memori a l [facility] ent Clinics Allergies, Adverse Reactions, Alerts Allergy Allergy Status Severity Reaction(s) Onset Inactive Treating Comm ents Source Name Type Date Date Clinician statin Adverse Active palpitations [facility] Clinics codeine Adverse Active Info Not [facility] Reaction [facility] Clinics Codeine Allergy Active Moderate Palpitations [place] to to severe Family substanc Practic e e Social History Smoking Status Start Date Stop Date Source Former Smoker [facility] Medications Ordered Filled Start Stop Current Ordering Indication Dosage Frequency Signature Comments Components Source Medication Medication Date Date Medication? Clinician (SIG) Name Name Metformin Metformin Yes Na Larios TAKE ONE [facility] HCl HCl TABLET BY [facility] - MOUTH Memoria THREE l TIMES [facility] DAILY ent Clinics Levothyroxi Levothyroxi Yes Na Larios [address] [facility] ne Sodium ne Sodium on an Luke s - empty Memoria stomach in l the [facility] morning ent Clinics Aspirin Aspirin Yes Na Larios [address] [facility] Clinics Omeprazole Omeprazole Yes Na Larios TAKE ONE [facility] CAPSULE BY [facility] - MOUTH ONCE Memoria DAILY l [facility] ent Clinics Metformin Metformin Yes Na Larios [address] [address] HCl HCl with meals [facility] ent Clinics Glimepiride Glimepiride Yes Na Larios [address] with [facility] - breakfast Memoria or the l first main [facility] meal of ent the day Clinics Nystatin Nystatin Yes Na Larios [address] [facility] applicatio [facility] - n to Memoria affected l area [facility] ent Clinics Levothyroxi Levothyroxi Yes Na Larios TAKE ONE [facility] ne Sodium ne Sodium TABLET BY [facility] - MOUTH ONCE Memoria DAILY l [facility] ent Clinics Alendronate Alendronate Yes Na Larios [address] Sodium Sodium [facility] ent Clinics Aspir-81 Aspir-81 Yes Na Larios [address] [facility] ent Clinics Calcium 600 Calcium 600 No Calcium [place] one tablet one tablet 600 one Family daily daily tablet Practic daily e gabapentin gabapentin No gabapentin [facility] 100 mg 100 mg 100 mg Family capsule capsule capsule Practi c Take 1 Take 1 Take 1 e capsule 3 capsule 3 capsule 3 times a day times a day times a by oral by oral day by route. route. oral route. levothyroxi levothyroxi No levothyrox [place] ne 75 mcg ne 75 mcg ine 75 mcg Family tablet tablet tablet Practic e metformin metformin No metformin [place] 1,000 mg 1,000 mg 1,000 mg Fam ervin tablet Take tablet Take tablet Practic 1 tablet 1 tablet Take 1 e twice a day twice a day tablet by oral by oral twice a route. route. day by oral route. omeprazole omeprazole No 1 Q1D omeprazole [place] 20 mg 20 mg 20 mg Family tablet,alexander tablet,alexander tablet,del Practic yed release yed release ayed e Take 1 Take 1 release tablet tablet Take 1 every day every day tablet by oral by oral every day route. route. by oral route. OneTouch OneTouch No OneTouch Vince tricia Delica Plus Delica Plus Delica Family Lancet 33 Lancet 33 Plus Pract ic gauge gauge Lancet 33 e gauge OneTouch OneTouch No OneTouch Vince tricia Ultra Blue Ultra Blue Ultra Blue Family Test Strip Test Strip Test Strip Practic e OneTouch OneTouch No OneTouch Vince tricia Ultra2 Ultra2 Ultra2 Family Meter Meter Meter Practic e simvastatin simvastatin No hansa [facility] 20 mg 20 mg n 20 mg [...] route. oral route. hours by oral route. Immunizations Ordered Immunization Filled Immunization Date Status Commen ts Source Name Name pneumococcal pneumococcal 2017-03-13 Completed [facility] Sameer varela polysaccharide PPV23 polysaccharide PPV23 00:00:00 Practice Vital Signs Vital Name Observation Time Observation Value Comments Source Height 2020-07-20 00:00:00 61 [in_i] [facility] BMI (Body Mass 2020-07-20 00:00:00 25.5 kg/m2 [facility] Index) Practice Body Weight 2020-07-20 00:00:00 135 [lb_av] [facility] Procedures Procedure Date / Time Performed Performing Clinician Cristel e Reduction of Fracture of [facility] Upper Arm with Internal Practice Fixation Appendectomy [facility] Plan of Care Planned Activity Planned Date Details Comments Source Instructions [facility] Encounters Start End Encounter Admission Attending Care Care Encounter Source Date/Time Date/Time Type Type Clinicians Facility Department ID 2020-08-21 2020-08-21 Emergency [facility] [id number] 00:38:00 02:08:00 Iqra Munoz [id number] [place] [id number] [place] [id number] 2020-07-20 2020-07-20 [facility] [place] - [id number] V ill[place] 00:00:00 00:00:00 Dean Roberts Famil y SMOKE ROOM OPERATOR: [id number] Medical - Pract carlton Salcedo, [email or web address] [id number], [facility], [place] [address] , Ph. 2019-07-18 2019-07-18 Jud Benoit [facility] [place] - [id number] [facility] 00:00:00 00:00:00 [facility] ervin cortes SMOKE ROOM OPERATOR: Medical - Practi c [address] [email or web address], [address] [place] [address], [place] [address] , Ph. 2017-08-30 2017-08-30 [facility] [id number] [address] 14:30:00 14:30:00 [employer] [facility] 2017-08-28 2017-08-28 [facility] [id number] 16:25:00 16:25:00 [email or web address] [facility] 2017-05-29 2017-05-29 [facility] [id number] 09:15:00 09:15:00 [employer] [facility] ent Clinics Results This patient has no known results.
[2020-10-09 18:10] LABS: Absolute Lymphocytes (CBC) 1.2 K/uL (0.7-4.9); Basophils % 0.7 % (0-1.3); Hematocrit 34.5 % (36.0-45.0); Lymphocytes % 10.6 % (15.3-44.8); MPV 7.4 fL (7.6-11.3); RBC Red Blood Cell Count 4.06 M/uL (3.86-4.86)
[2020-10-09 18:34] LABS: Protime INR 1.04
[2020-10-09] MEDS ORDERED: ONDANSETRON 4 MG/2 ML VIAL ONE (18:43)
[2020-10-09] MEDS ORDERED: FENTANYL CITR 100 MCG/2 ML ONE (18:43)
[2020-10-09 18:49] LABS: Albumin 2.9 g/dL (3.4-5.0); Bilirubin Direct 0.1 mg/dL (0-0.2); Bilirubin Total 0.5 mg/dL (0.2-1.0); Magnesium 1.8 mg/dL (1.8-2.4); Potassium 3.9 mmol/L (3.5-5.1); Protein, Total 6.3 g/dL (6.4-8.2); Troponin (Emerg Dept Use Only) 0.02 ng/mL (0.0-0.045)
--- NOTE | 2020-10-09 19:14 | RAD REPORT ---
EXAM DESCRIPTION: RAD - Chest Single View - 10/09/2020 6:39 pm CLINICAL HISTORY: WEAKNESS COMPARISON: Two view chest October 2017 TECHNIQUE: AP portable chest image was obtained 10/09/2020 6:39 pm . FINDINGS: Lung volumes are low. No peripheral mass or consolidation. Heart size accentuated by shall ow inspiration portable imaging. No significant failure or volume overload. No measurable pleural eff usion and no pneumothorax. No acute bony abnormality seen. No acute aortic findings suspected. IMPRESSION: No acute cardiopulmonary process.
--- NOTE | 2020-10-09 19:28 | RAD REPORT ---
EXAM DESCRIPTION: CT - Angio Aorta For Dissection - 10/09/2020 7:16 pm CLINICAL HISTORY: ABDOMINAL DISTENTION COMPARISON: None. TECHNIQUE: Dynamically enhanced 3 mm thick images of the chest, abdomen, and upper pelvis were obtai dwain during administration of approximately 150mL Isovue 370 IV contrast. Sagittal and coronal reconst ruction images were generated using MIP and reviewed. Exam utilizes a protocol to evaluate entire cou rse of the aorta. All CT scans are performed using dose optimization technique as appropriate and may include automated exposure control or mA/KV adjustment according to patient size. FINDINGS: Aorta is normal in diameter with no dissection or other acute aortic findings. Aortic wall atherosclerotic calcifications are present without significant luminal narrowing. Reconstruction carlos ges show no significant findings. Pulmonary arteries are normal as well. No cardiomegaly, pericardial thickening or pericardial effusio n. No mass or infiltrate in the lung parenchyma. No pleural thickening, pleural effusion or pneumothorax . No abnormal mediastinal or hilar mass or lymphadenopathy seen. No chest wall mass or abnormal axillar y lymphadenopathy. Celiac, SMA and renal arteries show no suspicious findings. No suspicious findings of the solid abdom inal visceral. Gallbladder is absent. No biliary tree dilatation. No mass or abnormal lymphadenopathy . No free air, free fluid or inflammatory stranding. No urinary bladder abnormality. Stomach and small bowel show no acute findings. Colon is not dilated. There is prominent left-sided d iverticulosis. A 4 centimeter long segment of the sigmoid colon shows thickened irregular luna. This is an area of prominent diverticulosis. There is contrast material that has been trapped in several of the diverticula in this region. No surrounding inflammatory stranding. There is no history of acut e left lower quadrant symptoms. Disc and bone degenerative changes are present. No pathologic bone process. IMPRESSION: Negative CT scan of the aorta for acute findings. Proximal sigmoid colon shows irregular thickened luna over a 4 centimeter long segment. This is in t he region of prominent diverticulosis. No acute left lower quadrant symptoms were detailed that would suggest acute diverticulitis. The sigm oid colon findings are possibly changes related to chronic diverticular disease. However, the possibi lity of a sigmoid colon mass cannot be excluded. An outpatient GI consultation may be warranted if th e patient has not had recent colonoscopy.
--- NOTE | 2020-10-09 19:29 | RAD REPORT ---
EXAM DESCRIPTION: CT - Head Brain Wo Cont - 10/09/2020 7:15 pm CLINICAL HISTORY: Dizziness;Syncope COMPARISON: No comparisons TECHNIQUE: Axial 5 mm thick images of the head were obtained without IV contrast. All CT scans are performed using dose optimization technique as appropriate and may include automated exposure control or mA/KV adjustment according to patient size. FINDINGS: No intracranial hemorrhage, mass, edema or shift of mid-line structures. No acute infarcti on changes seen. Mild changes are present ventricles in proportion. Mild chronic ischemic changes als o noted. Arterial calcifications are present. Mastoid air cells and visualized portions of the paranasal sinuses are clear. No acute bony findings. IMPRESSION: Negative non-contrast CT head examination for acute finding Mild atrophy chronic ischemic change.
--- NOTE | 2020-10-09 19:48 | ER ---
Nurse's Notes [facility] Name: Nadira Costello Age: 80 yrs Sex: Female : 1940 Arrival Date: 10/09/2020 Time: 17:[address] Private MD: Diagnosis: Weakness;Type 2 diabetes mellitus with hyperglycemia;Diverticulosis of intestine, part unspecified, without perforation or abscess without bleeding;Syncope Near;Hypotension, unspecified Presentation: 10/09 17:56 Chief complaint: EMS states: Generalized weakness x 2-3 weeks, dizziness x 3 days. Son tere found her slumped over in chair, called EMS, on scene pt was AOx3, ambulatory, SBP 80s, BGL 259. NS 250 mls to 20g FA. Coronavirus screen: At this time, the client does not indicate any symptoms associated with coronavirus-19. Ebola Screen: No symptoms or risks identified at this time. Risk Assessment: Do you want to hurt yourself or someone else? Patient reports no desire to harm self or others. Onset of symptoms is unknown. 17:56 Method Of Arrival: EMS: [facility] 17:56 Acuity: FLORENTINO 2 hb 17:59 Initial Sepsis Screen: Does the patient meet any 2 criteria? No. Patient's initial hb sepsis screen is negative. Does the patient have a suspected source of infection? No. Patient's initial sepsis screen is negative. Triage Assessment: 17:59 General: Appears in no apparent distress. Behavior is calm, cooperative. Pain: Pain hb currently is 5 out of 10 on a pain scale. EENT: No signs and/or symptoms were reported regarding the EENT system. Neuro: Level of Consciousness is awake, alert, obeys commands, Oriented to person, place, time, situation, Reports dizziness, weakness. Cardiovascular: Patient's skin is warm and dry. Respiratory: Respiratory effort is even, unlabored, Respiratory pattern is regular, symmetrical. GI: No signs and/or symptoms were reported involving the gastrointestinal system. : No signs and/or symptoms were reported regarding the genitourinary system. Derm: Skin is pink, warm \T\ dry. Musculoskeletal: Reports generalized weakness. Historical: - Allergies: 17:59 Lisinopril; hb 17:59 Nitrofurantoin; hb 17:59 tramadol; hb 17:59 Vicodin; hb - Home Meds: 17:59 aspirin 81 mg Oral TbEC 1 tab once daily [Active]; gabapentin 100 mg Oral cap 1 caps 3 hb times per day [Active]; Metformin Oral [Active]; omeprazole 20 mg Oral cpDR 1 cap once daily [Active]; Synthroid 50 mcg Oral tab 1 tab once daily [Active]; - PMHx: 17:59 Arthritis; breast cancer; Diabetes - NIDDM; Hypothyroidism; hb - Immunization history:: Adult Immunizations up to date, Client reports having NOT received the Covid vaccine. - Social history:: Smoking status: Patient denies any tobacco usage or history of. - Family history:: not pertinent. Screenin:00 Abuse screen: Denies threats or abuse. Denies injuries from another. Nutritional hb screening: No deficits noted. Tuberculosis screening: No symptoms or risk factors identified. Fall Risk Total Rizvi Fall Scale indicates Low Risk Score (25-44 pts). Fall prevention measures have been instituted. Side Rails Up X 2 Frequent Obs/Assesments occuring As available Patient and Family Educated on Fall Prevention Program and strategies. Assessment: 18:00 General: see triage assessment . hb 18:23 Reassessment: Pt c/o left sided back pain 9/10. Dr. Mi notified, medicated as hb ordered. Vital Signs: 17:56 BP 87 / 55; Pulse 68; Resp 20; Temp 97.6; Pulse Ox 97% on R/A; Pain 5/10; hb 18:50 BP 91 / 48; Pulse 63; Resp 17; Pulse Ox 97% on R/A; hb 21:30 BP 112 / 50; Pulse 60; Resp 18; Pulse Ox 99% ; ea ED Course: 17:55 Patient arrived in ED. ds1 17:56 Jeri Cash, LULA is Primary Nurse. hb 17:58 Triage completed. hb 17:59 Arm band placed on. hb 18:00 Patient has correct armband on for positive identification. Bed in low position. Call hb light in reach. Side rails up X 1. 18:00 Maintain EMS IV. Dressing intact. Good blood return noted. Site clean \T\ dry. Gauge \T\ hb site: 22 RFA. 18:11 X-ray(s) taken. sv 18:12 Dennis Mi MD is Attending Physician. shakira 18:13 Basic Metabolic Panel Sent. sv 18:13 CBC with Diff Sent. sv 18:13 XRAY Chest (1 view) Sent. sv 18:23 Lab(s) recollected, by me, sent to lab. sv 18:39 XRAY Chest (1 view) In Process Unspecified. EDMS 19:10 Report given to Daisha RN and Harley RN. sv 19:15 CT Head Brain wo Cont In Process Unspecified. EDMS 19:15 CT Aorta for Dissection In Process Unspecified. EDMS 19:43 Analy Armstrong MD is Hospitalizing Provider. shakira 19:54 Primary Nurse role handed off by Jeri Cash RN mw2 21:25 No provider procedures requiring assistance completed. Patient admitted, IV remains in ea place. Administered Medications: 18:22 Drug: fentaNYL (PF) 25 mcg Route: IVP; Site: right forearm; hb 21:12 Follow up: Response: No adverse reaction ea 18:22 Drug: Zofran (Ondansetron) 4 mg Route: IVP; Site: right forearm; hb 21:37 Follow up: Response: No adverse reaction ea 18:23 Drug: NS 0.9% 1000 ml Route: IV; Rate: 1 bolus; Site: right forearm; hb 21:38 Follow up: Response: No adverse reaction; IV Status: Completed infusion; IV Intake: ea 1000ml 19:30 Drug: Rocephin (cefTRIAXone) 1 grams Route: IV; Rate: per protocol; Site: left ak2 antecubital; 21:37 Follow up: Response: No adverse reaction; IV Status: Completed infusion ea 19:30 Drug: Pepcid (famotidine) 20 mg Route: IVP; Site: left antecubital; ak2 21:38 Follow up: Response: No adverse reaction ea 20:01 Drug: Zosyn (piperacillin-tazobactam) 3.375 grams Route: IVPB; Infused Over: 60 mins; ak2 Site: left antecubital; 21:38 Follow up: IV Status: Completed infusion ea Intake: 21:38 IV: 1000ml; Total: 1000ml. ea Outcome: 19:48 Decision to Hospitalize by Provider. shakira 21:25 Instructed on the need for admit, Demonstrated understanding of instructions. ea 21:34 Admitted to Med/surg accompanied by tech, via stretcher, with chart, Report called to ea Receiving nurse on second floor 21:34 Condition: stable 21:37 Patient left the ED. edmundo Signatures: Dispatcher [employer] Vanessa Shine RN Dennis Donnelly MD MD cha Sanford, Demi ds1 Jeri Cash RN Daisha Corona RN RN ea [place], MyKena mw2 Waqas Kendrick wa2
--- NOTE | 2020-10-09 19:48 | EDPHYS ---
Physician Documentation [facility] Name: Nadira Costello Age: 80 yrs Sex: Female : 1940 Arrival Date: 10/09/2020 Time: 17:[address] Private MD: ED Physician Dennis Mi HPI: 10/09 19:38 This 80 yrs old Female presents to ER via EMS with complaints of General shakira Weakness. 19:38 weak x 2 weeks, son found slumped over, low blood pressure. Onset: The symptoms/episode shakira began/occurred just prior to arrival. Severity of symptoms: At their worst the symptoms were mild in the emergency department the symptoms are unchanged. The patient has not experienced similar symptoms in the past. Historical: - Allergies: 17:59 Lisinopril; hb 17:59 Nitrofurantoin; hb 17:59 tramadol; hb 17:59 Vicodin; hb - Home Meds: 17:59 aspirin 81 mg Oral TbEC 1 tab once daily [Active]; gabapentin 100 mg Oral cap 1 caps 3 hb times per day [Active]; Metformin Oral [Active]; omeprazole 20 mg Oral cpDR 1 cap once daily [Active]; Synthroid 50 mcg Oral tab 1 tab once daily [Active]; - PMHx: 17:59 Arthritis; breast cancer; Diabetes - NIDDM; Hypothyroidism; hb - Immunization history:: Adult Immunizations up to date, Client reports having NOT received the Covid vaccine. - Social history:: Smoking status: Patient denies any tobacco usage or history of. - Family history:: not pertinent. ROS: 19:38 Constitutional: Negative for fever, chills, and weight loss, Eyes: Negative for injury, shakira pain, redness, and discharge, ENT: Negative for injury, pain, and discharge, Neck: Negative for injury, pain, and swelling, Cardiovascular: Negative for chest pain, palpitations, and edema, Respiratory: Negative for shortness of breath, cough, wheezing, and pleuritic chest pain, Abdomen/GI: Negative for abdominal pain, nausea, vomiting, diarrhea, and constipation, Back: Negative for injury and pain, : Negative for injury, bleeding, discharge, and swelling, MS/Extremity: Negative for injury and deformity, Skin: Negative for injury, rash, and discoloration, Psych: Negative for depression, anxiety, suicide ideation, homicidal ideation, and hallucinations, Allergy/Immunology: Negative for hives, rash, and allergies, Endocrine: Negative for neck swelling, polydipsia, polyuria, polyphagia, and marked weight changes, Hematologic/Lymphatic: Negative for swollen nodes, abnormal bleeding, and unusual bruising. 19:38 Cardiovascular: Negative for chest pain, edema, orthopnea, palpitations, paroxysmal nocturnal dyspnea. 19:38 Abdomen/GI: Negative for constipation, abdominal cramps, abdominal distension, black/tarry stool, rectal pain, rectal bleeding. 19:38 Neuro: Positive for weakness. Exam: 19:40 Constitutional: This is a well developed, well nourished patient who is awake, alert, shakira and in no acute distress. Head/Face: Normocephalic, atraumatic. Eyes: Pupils equal round and reactive to light, extra-ocular motions intact. Lids and lashes normal. Conjunctiva and sclera are non-icteric and not injected. Cornea within normal limits. Periorbital areas with no swelling, redness, or edema. ENT: Nares patent. No nasal discharge, no septal abnormalities noted. Tympanic membranes are normal and external auditory canals are clear. Oropharynx with no redness, swelling, or masses, exudates, or evidence of obstruction, uvula midline. Mucous membranes moist. Neck: Trachea midline, no thyromegaly or masses palpated, and no cervical lymphadenopathy. Supple, full range of motion without nuchal rigidity, or vertebral point tenderness. No Meningismus. Chest/axilla: Normal chest wall appearance and motion. Nontender with no deformity. No lesions are appreciated. Cardiovascular: Regular rate and rhythm with a normal S1 and S2. No gallops, murmurs, or rubs. Normal PMI, no JVD. No pulse deficits. Respiratory: Lungs have equal breath sounds bilaterally, clear to auscultation and percussion. No rales, rhonchi or wheezes noted. No increased work of breathing, no retractions or nasal flaring. Abdomen/GI: Soft, non-tender, with normal bowel sounds. No distension or tympany. No guarding or rebound. No evidence of tenderness throughout. Back: No spinal tenderness. No costovertebral tenderness. Full range of motion. Female : Normal external genitalia. Skin: Warm, dry with normal turgor. Normal color with no rashes, no lesions, and no evidence of cellulitis. MS/ Extremity: Pulses equal, no cyanosis. Neurovascular intact. Full, normal range of motion. Psych: Awake, alert, with orientation to person, place and time. Behavior, mood, and affect are within normal limits. 19:40 Neuro: Orientation: is normal, appropriate for stated age, no acute changes, Mentation: is normal, appropriate for stated age, no acute changes, Memory: is normal, appropriate for stated age, no acute changes, Cranial nerves: grossly normal, is grossly normal based on the patient's age, no acute changes, Cerebellar function: is grossly normal, is grossly normal based on the patient's age, no acute changes, Motor: is normal, is grossly normal based on the patient's age, no acute changes, moves all fours, strength is normal, strength is 5/5 in all extremities, Sensation: is normal, no obvious gross deficits, appropriate no acute changes, Gait: not applicable Babinski testing is normal, seizure activity, is not displayed by the patient. 19:50 ECG was reviewed by the Attending Physician. [facility] Vital Signs: 17:56 BP 87 / 55; Pulse 68; Resp 20; Temp 97.6; Pulse Ox 97% on R/A; Pain 5/10; hb 18:50 BP 91 / 48; Pulse 63; Resp 17; Pulse Ox 97% on R/A; hb 21:30 BP 112 / 50; Pulse 60; Resp 18; Pulse Ox 99% ; ea MDM: 18:12 Patient medically screened. shakira 19:48 Differential Diagnosis sepsis. Data reviewed: vital signs, nurses notes, lab test [facility] result(s), EKG, radiologic studies, CT scan, plain films. 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 Test interpretation: by ED physician or midlevel provider: ECG, plain radiologic studies. Counseling: I had a detailed discussion with the patient and/or guardian regarding: the historical points, exam findings, and any diagnostic results supporting the discharge/admit diagnosis, lab results, radiology results, the need for further work-up and treatment in the hospital. 10/09 17:58 Order name: Basic Metabolic Panel sv 10/09 17:58 Order name: CBC with Diff sv 10/09 17:58 Order name: LFT's; Complete Time: 19:24 sv 10/09 17:58 Order name: Magnesium; Complete Time: 19:24 sv 10/09 17:58 Order name: NT PRO-BNP; Complete Time: 19:24 sv 10/09 17:58 Order name: PT-INR; Complete Time: 19:24 sv 10/09 17:58 Order name: Troponin (emerg Dept Use Only); Complete Time: 19:24 sv 10/09 17:58 Order name: Basic Metabolic Panel; Complete Time: 19:24 EDPA 10/09 17:58 Order name: CBC with Automated Diff; Complete Time: 18:14 EDPA 10/09 18:13 Order name: Lipase; Complete Time: 19:24 [facility] 10/09 18:13 Order name: Urine Culture [facility] 10/09 19:32 Order name: SARS-COV-2 RT PCR; Complete Time: 19:41 EDPA 10/09 19:51 Order name: Procalcitonin 10/09 17:58 Order name: XRAY Chest (1 view); Complete Time: 19:24 10/09 17:58 Order name: EKG; Complete Time: 17:58 10/09 17:58 Order name: Cardiac monitoring; Complete Time: 17:58 10/09 17:58 Order name: EKG - Nurse/Tech; Complete Time: 17:58 10/09 17:58 Order name: IV Saline Lock; Complete Time: 17:58 10/09 17:58 Order name: Labs collected and sent; Complete Time: 17:58 10/09 18:13 Order name: CT Head Brain wo Cont; Complete Time: 19:41 [facility] 10/09 18:18 Order name: CT Aorta for Dissection; Complete Time: 19:41 [facility] 10/09 19:51 Order name: Lactate 10/09 19:51 Order name: Blood Culture Adult (2) 10/09 17:58 Order name: O2 Per Protocol; Complete Time: 17:58 10/09 17:58 Order name: O2 Sat Monitoring; Complete Time: 17:58 10/09 18:15 Order name: Labs - recollect needed: recollect blue and light green tubes hemolyzed; eb Complete Time: 18:22 10/09 20:09 Order name: Misc. Order: please get cath ua and send for c\T\s shakira EC:50 Rate is 67 beats/min. Rhythm is regular. QRS Ackerman is Normal. IA interval is normal. QRS shakira interval is normal. QT interval is normal. No Q waves. T waves are Flattened in leads V4, V5. No ST changes noted. Clinical impression: NSR w/ Non-specific ST/T Changes and No evidence of ischemia. Interpreted by me. Reviewed by me. Administered Medications: 18:22 Drug: fentaNYL (PF) 25 mcg Route: IVP; Site: right forearm; hb 21:12 Follow up: Response: No adverse reaction ea 18:22 Drug: Zofran (Ondansetron) 4 mg Route: IVP; Site: right forearm; hb 21:37 Follow up: Response: No adverse reaction ea 18:23 Drug: NS 0.9% 1000 ml Route: IV; Rate: 1 bolus; Site: right forearm; hb 21:38 Follow up: Response: No adverse reaction; IV Status: Completed infusion; IV Intake: ea 1000ml 19:30 Drug: Rocephin (cefTRIAXone) 1 grams Route: IV; Rate: per protocol; Site: left ak2 antecubital; 21:37 Follow up: Response: No adverse reaction; IV Status: Completed infusion ea 19:30 Drug: Pepcid (famotidine) 20 mg Route: IVP; Site: left antecubital; ak2 21:38 Follow up: Response: No adverse reaction ea 20:01 Drug: Zosyn (piperacillin-tazobactam) 3.375 grams Route: IVPB; Infused Over: 60 mins; ak2 Site: left antecubital; 21:38 Follow up: IV Status: Completed infusion ea Disposition Summary: 10/09/20 19:48 Hospitalization Ordered Hospitalization Status: Inpatient Admission shakira Provider: Analy Armstrong cha Location: Telemetry/MedSurg (Inpatient) shakira Condition: Fair shakira Problem: new shakira Symptoms: have improved shakira Bed/Room Type: Standard shakira Room Assignment: 214(10/09/20 21:15) mw Diagnosis - Weakness shakira - Type 2 diabetes mellitus with hyperglycemia shakira - Diverticulosis of intestine, part unspecified, without perforation or abscess shakira without bleeding - Syncope Near shakira - Hypotension, unspecified shakira Forms: - Medication Reconciliation Form shakira - SBAR form shakira Signatures: Dispatcher [employer] EDMS Vanessa Jensen, RN Sandra Dunn RN Dennis Webb MD MD cha Baxter, Heather, RN Ondina Love Anthony ak2 Antunez, Elena RN ea Corrections: (The following items were deleted from the chart) 18:28 18:14 CORONAVIRUS+.BRZ ordered. EDMS EDMS 21:15 19:48 shakira nichols
[2020-10-09] MEDS ORDERED: CEFTRIAXONE/SWI 1gm 1 GM/10 ML SYR ONE (19:50)
[2020-10-09] MEDS ORDERED: FAMOTIDINE 20 MG/2 ML VIAL IV ONE (19:50)
[2020-10-09] MEDS ORDERED: NA CHLORIDE 0.9% 250 ML ONE (20:21)
[2020-10-09] MEDS ORDERED: PIPERACIL/TAZO 3.375 GM VIAL IV ONE (20:21)
--- NOTE | 2020-10-09 20:49 | P.HP ---
Certification for Inpatient Patient admitted to: Observation With expected LOS: <2 Midnights Patient will require the following post-hospital care: None Practitioner: I am a practitioner with admitting privileges, knowledge of patient current condition, hospital course, and medical plan of care. Services: Services provided to patient in accordance with Admission requirements found in Title 42 Section 412.3 of the Code of Federal Regulations Patient History Date of Service: 10/09/20 Primary Care Provider: Dr. Bernardo Reason for admission: Hypotension, weakness History of Present Illness: 80-year-old female with history of diabetes most type II, arthritis, hypothyroidism presents to the emergency department for weakness, low blood pressure. Patient had near syncopal episode that was witnessed by family. Patient was evaluated in the emergency department, labs were significant for white blood cell count 11.6 hemoglobin 11.5 adequate 34.5 GFR 71 glucose 187 BNP 2098 chest x-ray unremarkable CT dissection protocol demonstrated sigmoid diverticulosis without complication, patient without any abdominal pain at this time. Blood pressure remains low systolic around 90, patient was started on fluids in the emergency department with some improvement, currently systolic blood pressure around 105. ED provider wishes to admit under observation for hypotension, generalized weakness. Urinalysis pending. Patient does not appear septic at this time, afebrile. Allergies acetaminophen [From Vicodin] Allergy (Unverified 05/07/17 11:30) Unknown codeine Allergy (Unverified 02/22/14 00:05) Unknown hydrocodone [From Vicodin] Allergy (Unverified 05/07/17 11:30) Unknown lisinopril Allergy (Unverified 05/07/17 11:30) Unknown nitrofurantoin Allergy (Unverified 05/07/17 11:30) Unknown tramadol Allergy (Unverified 03/10/14 10:42) Unknown No Known Migue Allergy (Uncoded 09/03/15 17:05) Unknown Home Medications: Levothyroxine Sodium [Synthroid] 25 mcg PO DAILY 03/22/12 Metformin HCl 1,000 mg PO BID 03/22/12 Aspirin 325 mg PO DAILY #0 tablet 03/23/12 - Past Medical/Surgical History Diabetic: Yes -: Diabetes mellitus type 2 -: Hypothyroidism -: Breast cancer -: Arthritis -: Hysterectomy -: Left mastectomy Psychosocial/ Personal History: Patient lives at home with her grandson - Family History Father -: Diabetes Mother -: Diabetes - Social History Smoking Status: Never smoker Alcohol use: No CD- Drugs: No Caffeine use: Yes Place of Residence: Home Review of Systems 10-point ROS is otherwise unremarkable General: Weakness, Malaise Physical Examination - Physical Exam General: Alert, In no apparent distress, Oriented x2 HEENT: Atraumatic, PERRLA, Other (Mucous membranes dry), EOMI, Sclerae nonicteric Neck: Supple, 2+ carotid pulse no bruit, No LAD, Without JVD or thyroid abnormality Respiratory: Clear to auscultation bilaterally, Normal air movement Cardiovascular: Regular rate/rhythm, Normal S1 S2 Gastrointestinal: Normal bowel sounds, No tenderness Musculoskeletal: No tenderness Integumentary: No rashes Neurological: Normal speech, Normal strength at 5/5 x4 extr, Normal tone, Normal affect - Studies Laboratory Data (last 24 hrs) 10/09/20 18:20: PT 12.0, INR 1.04 10/09/20 18:20: Sodium 136, Potassium 3.9, BUN 17, Creatinine 0.78, Glucose 187 H, Magnesium 1.8, Total Bilirubin 0.5, AST 45 H, ALT 49, Alkaline Phosphatase 90, Lipase 44 L 10/09/20 17:50: WBC 11.60 H, Hgb 11.5 L, Hct 34.5 L, Plt Count 246 Assessment and Plan - Plan Assessment: Hypotension, near syncope, generalized weakness Diabetes mellitus type 2 Hypothyroidism Plan: Hypotension, near syncope, generalized weakness: Blood pressure has improved some with IV fluids, white blood cell count mildly elevated at 11,000 no source of infection, patient afebrile at this time, urinalysis pending. Patient does not appear septic at this time. Blood cultures obtained, procalcitonin/lactate pending. Will obtain orthostatic vital signs, continue with IV fluids. Patient appears nontoxic. Anticipate clinical improvement over the course the next 24 hours. Diabetes mellitus type 2: AC at bedtime Accu-Chek, sliding scale insulin therapy. A1c with morning labs. Hypothyroidism: Thyroid panel with morning lab, continue home medication. DVT PPX: Lovenox Code status: Full Discharge Plan: Home Plan to discharge in: 24 Hours - Advance Directives Does patient have a Living Will: Yes Does patient have a Durable POA for Healthcare: Yes - Code Status/Comfort Care Code Status Assessed: Yes (Full code) Critical Care: No Time Spent Managing Pts Care (In Minutes): 55
[2020-10-09] MEDS ORDERED: ONDANSETRON 4 MG/2 ML VIAL IV PRN (21:44)
[2020-10-10] MEDS: NA CHLORIDE 0.9% 1,000 ML IV SCH ×3 (00:12→17:44)
[2020-10-10] MEDS: INSULIN -REGULAR HUMAN 50 UNIT/0.5 ML ML SQ SCH ×4 (00:31→16:30)
[2020-10-10 05:24] VITALS: BMI 28.6
[2020-10-10 05:47] LABS: Absolute Lymphocytes (CBC) 1.7 K/uL (0.7-4.9); Basophils % 0.4 % (0-1.3); Hematocrit 32.2 % (36.0-45.0); Lymphocytes % 21.4 % (15.3-44.8); MPV 7.2 fL (7.6-11.3); RBC Red Blood Cell Count 3.79 M/uL (3.86-4.86)
[2020-10-10 06:13] LABS: Albumin 2.8 g/dL (3.4-5.0); Bilirubin Total 0.4 mg/dL (0.2-1.0); Potassium 3.5 mmol/L (3.5-5.1); Protein, Total 5.9 g/dL (6.4-8.2); Thyroid Stimulating Hormone 1.95 uIU/mL (0.360-3.740)
--- NOTE | 2020-10-10 07:45 | RAD REPORT ---
EXAM DESCRIPTION: RAD - Chest Single View - 10/10/2020 6:37 am CLINICAL HISTORY: Hypotension, leukocytosis, eval for pneumonia COMPARISON: Chest Single View dated 10/09/2020; Chest Pa And Lat (2 Views) dated 10/13/2017; CHEST SING LE VIEW dated 02/21/2014; CHEST PA AND LAT 2 VIEW dated 09/03/2012 FINDINGS: No evidence of edema or pneumonia. The heart size is within normal limits.No acute osseous abnormality. No significant pleural effusions or pneumothorax. IMPRESSION: No acute cardiopulmonary disease.
[2020-10-10] MEDS ORDERED: ENOXAPARIN 40 MG/0.4 ML SQ SCH (09:00)
[2020-10-10] MEDS ORDERED: POTASSIUM CL SA 10 MEQ TAB PO ONE ×2 (09:00)
[2020-10-10 09:32] VITALS: O2SAT 98
[2020-10-10] MEDS: ACETAMINOPHEN 500 MG TAB PO PRN ×2 (09:47→14:00)
[2020-10-10 10:55] LABS: Urine Appearance CLEAR (Clear); Urine Bilirubin NEGATIVE (Negative); Urine Blood NEGATIVE (Negative); Urine Color YELLOW (Yellow); Urine Glucose NEGATIVE (Negative); Urine Protein NEGATIVE (Negative); Urine Specific Gravity 1.015 (1.005-1.030); Urine Urobilinogen 0.2 mg/dL (0.2-1.0); Urine pH 5.5 (5.0-7.0)
[2020-10-10 11:17] LABS: Urine Microscopic Reflex NO UMIC
[2020-10-10 16:56] VITALS: BP 166/73; TEMP 97.2
--- NOTE | 2020-10-15 21:35 | P.DS ---
Discharge Date: 10/10/20 Primary Care Provider: Dr. Bernardo Disposition: ROUTINE DISCHARGE Discharge Condition: GOOD Reason for Admission: Hypotension, weakness Brief History of Present Illness: Patient is an 80-year-old female with history of diabetes most type II, arthritis, hypothyroidism presents to the emergency department for weakness, low blood pressure. Patient had near syncopal episode that was witnessed by family. Patient was evaluated in the emergency department, labs were significant for white blood cell count 11.6 hemoglobin 11.5 adequate 34.5 GFR 71 glucose 187 BNP 2098 chest x-ray unremarkable CT dissection protocol demonstrated sigmoid diverticulosis without complication, patient without any abdominal pain at this time. Blood pressure remains low systolic around 90, patient was started on fluids in the emergency department with some improvement, currently systolic blood pressure around 105. ED provider wishes to admit under observation for hypotension, generalized weakness. Urinalysis pending. Patient does not appear septic at this time, afebrile. Hospital Course: Patient was treated with IV fluids. Patient is doing much better and she feels back to her baseline. Patient is clinically stable for discharge at this time. Vital Signs/Physical Exam: Temp Pulse Resp BP Pulse Ox 97.2 F 58 15 166/73 H 99 10/10/20 16:00 10/10/20 16:00 10/10/20 16:00 10/10/20 16:00 10/10/20 16:00 General: Alert, In no apparent distress, Oriented x3 Laboratory Data at Discharge: WBC 8.10 K/uL (4.3-10.9) D 10/10/20 05:01 Hgb 10.9 g/dL (12.0-15.0) L 10/10/20 05:01 Hct 32.2 % (36.0-45.0) L 10/10/20 05:01 Plt Count 224 K/uL (152-406) 10/10/20 05:01 PT 12.0 SECONDS (9.5-12.5) 10/09/20 18:20 INR 1.04 10/09/20 18:20 Sodium 140 mmol/L (136-145) 10/10/20 05:01 Potassium 3.5 mmol/L (3.5-5.1) 10/10/20 05:01 BUN 17 mg/dL (7-18) 10/10/20 05:01 Creatinine 0.80 mg/dL (0.55-1.3) 10/10/20 05:01 Glucose 136 mg/dL (74-106) H 10/10/20 05:01 Magnesium 1.8 mg/dL (1.8-2.4) 10/09/20 18:20 Total Bilirubin 0.4 mg/dL (0.2-1.0) 10/10/20 05:01 AST 27 U/L (15-37) 10/10/20 05:01 ALT 43 U/L (12-78) 10/10/20 05:01 Alkaline Phosphatase 84 U/L (45-117) 10/10/20 05:01 Triglycerides 93 mg/dL (<150) 10/10/20 05:01 Cholesterol 176 mg/dL (<200) 10/10/20 05:01 HDL Cholesterol 49 mg/dL (40-60) 10/10/20 05:01 Cholesterol/HDL Ratio 3.59 10/10/20 05:01 Lipase 44 U/L (73-393) L 10/09/20 18:20 Home Medications: Levothyroxine Sodium [Synthroid] 25 mcg PO DAILY 03/22/12 Metformin HCl 1,000 mg PO BID 03/22/12 Aspirin 325 mg PO DAILY #0 tablet 03/23/12 Cefdinir [Omnicef] 300 mg PO BID #14 capsule 10/10/20 predniSONE [Prednisone*] 20 mg PO DAILY #5 tab 10/10/20 New Medications: Cefdinir [Omnicef] 300 mg PO BID #14 capsule predniSONE [Prednisone*] 20 mg PO DAILY #5 tab Physician Discharge Instructions: OK TO DC IV AND DC HOME FOLLOW-UP WITH PCP IN 1-2 WEEKS CALL ME AT [phone] IF ANY QUESTIONS REGARDING HOSPITAL STAY RETURN TO THE ER IF SYMPTOMS WORSENS Diet: AHA Activity: Fall precautions Followup: Unknown,U [Primary Care Provider] - Time spent managing pt's care (in minutes): 35
== END 2020-10-10 18:17 | disposition home or self-care (01) ==
LOC: ER 17:54 → ERHOLD 20:20 → 2ND 21:26
PROVIDERS: ADMIT Hospitalist; ATTEND Hospitalist
DX: I95.9 Hypotension, unspecified (principal); R55 Syncope and collapse; R53.1 Weakness; E11.65 Type 2 diabetes mellitus with hyperglycemia; E03.9 Hypothyroidism, unspecified; K57.90 Diverticulosis of intestine, part unspecified, without perforation or abscess without bleeding; M19.90 Unspecified osteoarthritis, unspecified site; Z79.82 Long term (current) use of aspirin; Z88.6 Allergy status to analgesic agent; Z88.8 Allergy status to other drugs, medicaments and biological substances; Z85.3 Personal history of malignant neoplasm of breast; Z90.12 Acquired absence of left breast and nipple; Z90.710 Acquired absence of both cervix and uterus; Z83.3 Family history of diabetes mellitus
CPT/HCPCS: 96365; 96361; 96368; 93005; 87040 ×2; 85025 ×2; 80048; 36415; 83735; 85610; 80061; 82947 ×4; 80076; 83605; 84443; 81003; 83036; 84484; 84439; 83690; 80053; 84145 ×2; 83880; 70450; 71275; 74175; 71045 ×2; 97116; 96375; 99285; 96366; U0003; Q9967; J2543; J1650; J3010; J0696; J7050; J7030; J2405; G0378 ×2